=== PATIENT | female | born 1995 | race African-American/Black ===

== ENCOUNTER 2022-09-17 18:47 | Inpatient (IN) | payer OTHER, SELFPAY ==
[2022-09-17 19:58] VITALS: BMI 23.0
[2022-09-17 20:02] VITALS: BP 119/71; PULSE 80
[2022-09-17 20:03] VITALS: RESP 16; TEMP 36.8
--- NOTE | 2022-09-17 21:15 | PM.OBHPLI ---
OB - H&P: HPI Labor/Induction History of Present Illness Time Seen by Provider: 21:15 Date Seen: 09/17/22 Chief Complaint: The patient is a 27 year old 1 para 0 at 39+2 weeks gestation by LMP c/w 7 wk US, who presents for IOL for IUGR. Chief complaint: Maternity : 1 Para: 0 Indications for induction: other (IUGR) Narrative: Olena Coe Nurse is a 27 year old female at 39+ 2 weeks based on LMP consistent with 7 week ultrasound who presents for induction of labor for IUGR. Patient received most of her care through [facility]. Transferred care to [facility] with plan to deliver [facility] at 37 weeks. complicated by intrauterine growth restriction diagnosed at 32 weeks. Estimated weight 5th percentile based on 37 week ultrasound, normal Dopplers, CANDY 12.8 cm, with Maternal- medicine through [facility]. No NIPT. Recommendation to deliver at 39 weeks. also complicated by iron deficiency anemia with hemoglobin of 8.0 and ferritin of 2 on 08/09/2022. Patient received IV Feraheme x2 doses 09/10 in 09/13/2022. She is GBS positive. Today states she is feeling well. Endorses occasional uterine cramping. Normal movement. History of Present Dating criteria: based on LMP care: other (Fair. Transferred to [facility] at 37 weeks.) Ultrasounds: normal 1st trimester US and normal mid trimester US complications comment: IUGR, anemia Labs Blood type: O (+) positive Rubella: immune RPR/VDLR: nonreactive GBS status: positive HBsAG: negative Review of Systems Status of ROS: Reports: 10 or more systems reviewed and unremarkable except as noted in History and below OB - H&P: Exam Physical Exam: Vital signs: Temp Pulse Resp BP 98.2 F 80 16 119/71 09/17/22 20:03 09/17/22 20:02 09/17/22 20:03 09/17/22 20:02 Narrative: General appearance: Well-appearing adult female. Alert, oriented and appropriate. Sitting up in hospital bed. HEENT: EOMI, no conjunctival injection or discharge. MMM. Neck: Supple. CV: RRR, no rubs, murmurs or extra heart sounds. Pulm: CTAB, no wheezes, rales or rhonchi. Abdomen: Gravid. Soft, non-tender. MSK: Moving all extremities. Ext: Warm and well-perfused. No LE edema. Skin: No rashes appreciated over exposed skin. Neuro: Grossly normal strength and sensation. No focal deficits. Psych: Normal affect. Detailed Labor and Delivery Exam: Patient Gravid: Yes Dilation (cm): 0 Effacement (%): 50 Cervix position: posterior Consistency: medium Fetus (Single): Station: -3 Amniotic Membrane Status: intact Heart Rate Baseline: 130 Monitor Accelerations: Present Monitor Decelerations: None Hair Boiler Variability: Moderate (6-25) OB - Problem Based A/P Additional Plan (1) Term : Status: Acute Plan: - Cook catheter placed for cervical ripening. Plan low dose IV pitocin at midnight - GBS positive and will need abx in active labor - Epidural upon request (2) IUGR (intrauterine growth restriction): Problem details: EFW 5th percentile at 37 weeks, normal doplars. Normal 20 week survey. No NIPT. Delivery at 39 weeks per [facility]. Status: Acute Plan: - Plan peds present for delivery (3) Iron deficiency anemia during : Status: Acute Plan: Hgb 8.0 and ferritin 2. Hemoglobin electrophoresis suggested no thalasemia. S/p feraheme at 38 weeks. Plan - Admission hgb pending
[2022-09-18] VITALS (16 sets, daily range): BP systolic 109–140; BP diastolic 60–83; PULSE 69–87; RESP 16; TEMP 36.6–37; O2SAT 100
[2022-09-18 02:32] LABS: Basophils Percent Auto 0.2 % (0.0-3.0); Eosinophils Percent Auto 0.6 % (0.0-7.0); Hematocrit 36.6 % (33.0-51.0); Hemoglobin* 10.4 gm/dL (12.0-16.0); Immature Granulocytes Pct Auto 1.2 %; Lymphocytes Percent Auto 13.9 % (20-44); Mean Corpuscular HGB Conc 28 gm/dL (32-36); Mean Corpuscular Hemoglobin 20 pg (26-34); Mean Corpuscular Volume 70 fL (80-100); Monocytes Percent Auto 6.2 % (0.0-11.0); Neutrophils Percent Auto 77.9 % (42.0-72.0); Platelet Count* 254 K/uL (140-440); RDW Coefficient of Variation % 27.7 % (11.5-15.5); Red Blood Count 5.23 m/uL (4.00-5.20); White Blood Count* 13.34 K/uL (4.50-11.00)
[2022-09-18 02:36] LABS: Slide Review Reflex No
[2022-09-18] MEDS: LACTATED RINGERS 1000 ML 1,000 ML 125 ML IV ×2 (04:40→13:24)
[2022-09-18] MEDS: OXYTOCIN 30 unit/500 ML in NS 30 UNIT/500 ML BAG IVPB (04:45)
[2022-09-18] MEDS: miSOPROStoL 25 MCG/0.25 TABLET PO ×4 (11:24→17:25)
--- NOTE | 2022-09-18 18:26 | P.OBPN_ITS ---
Subjective Time Seen by Provider: 18:26 Date Seen: 09/18/22 Narrative: Patient is nearly 24 hours into induction labor. She had a catheter placed overnight times 12 hours with low-dose Pitocin started at midnight. Cervical check at 10:00 a.m. was 2/60/-3. Pitocin was stopped and patient was transitioned to oral Cytotec. She is now status post 4 doses. She is david every 1-7 minutes. Not really feeling contractions. FHT have been category I. Objective Vital Signs: Last Vital Signs Temp 98.1 F 09/18/22 17:23 Pulse 78 09/18/22 17:23 Resp 16 09/18/22 07:00 BP 109/66 09/18/22 17:23 Pulse Ox 100 09/18/22 08:06 Pelvic Exam Dilation (cm): 1.5 Effacement (%): 60 Station: -3 Assessment Assessment: induction ongoing Station: -3 Heart Rate Baseline: 150 Information And Referral Director Variability: Moderate (6-25) Monitor Accelerations: Present Monitor Decelerations: None Plan Plan: Discussed options for next steps of patient and her spouse including repeating cook catheter overnight, cervical overnight after a 4 hour break, discharge home and return in 24-48 hours to continue induction. Emphasized that safest option for baby is to continue induction given IUGR status. - Patient elects to proceed with repeating cook catheter overnight. Plan to place 2100.
--- NOTE | 2022-09-18 21:30 | PM.OBPNL ---
Subjective Time Seen by Provider: 21:30 Date Seen: 09/18/22 Narrative: Patient noting some more cramping over the past 2 hours. Objective Vital Signs: Last Vital Signs Temp 97.9 F 09/18/22 20:05 Pulse 76 09/18/22 20:05 Resp 16 09/18/22 20:05 BP 129/74 09/18/22 20:05 Pulse Ox 100 09/18/22 08:06 Pelvic Exam Dilation (cm): 2.5 Effacement (%): 75 Station: -3 Contractions Contraction Frequency: Q1-4 Contraction pattern: Regular Contraction intensity: Mild Assessment Station: -3 Heart Rate Baseline: 150 Monitor Accelerations: Present Monitor Decelerations: None Plan Plan: - Cook catheter placed. Cervix stretchy 2.5, soft. - Start IV pitocin 0000 - Epidural upon request - GBS positive. Abx in active labor
[2022-09-18] MEDS: LACTATED RINGERS 1000 ML 1,000 ML IV (22:54)
[2022-09-19] VITALS (14 sets, daily range): BP systolic 100–150; BP diastolic 52–86; PULSE 81–103; RESP 14–18; TEMP 36.3–37; O2SAT 98–99
[2022-09-19] MEDS: AMPICILLIN 2 GM in 0.9 % SODIUM CHLORIDE Mini-bag 100 ML IVPB (03:24)
[2022-09-19] MEDS: LIDOCAINE 1 % PF 30 ML INJECTION ×2 (06:09→06:27)
--- NOTE | 2022-09-19 07:16 | W.PM.OBVAGDE ---
OB Procedure Vag Delivery Mother Details Mother Details: The patient is a 27 year-old, 1, Para 0, admitted on 09/17/22 at Days gestation. : 1 Para: 0 Weeks Gestation: 39.4 Admission Date: 09/17/22 Additional Details Amniotic Membrane Status: AROM Amniotic Membrane Rupture Date: 09/19/22 Amniotic Membrane Rupture Time: 04:59 Amniotic Membrane Fluid Description: Clear and [place] Analgesia/Anesthesia Type: None Waterbirth: No Pitcoin: Yes Intrapartal Events: Labor Induction Induction Method: Intracervical balloon catheter, per misoprostol protocol and per pitocin protocol Delivery augmentation: rupture of membranes and pitocin Labor Onset: 02:03 Complete: 04:36 Pushin:00 Heart: heart tones during second stage were category 2. Early decelerations with contractions. Delivery Details Delivery Date: 09/19/22 Delivery Time: 06:00 Route of delivery: Gender: Female Viability: Alive; Heart Rate Present Position at Delivery: OA Delivery Details: Induction for IUGR. Cervix initially closed. Cook catheter placed 1900 on 09/17/22 with pitocin augmentation. Cervix found to be 2/60/-3. Pitocin stopped and oral cytotec initiated for additional cervical ripening. Received total of 4 doses. Cervix noted to be 1.5/60/03 at 1800 09/18. Elected to replace cook at 2100. IV pitocin initiated at 0127. Cook fell out 0203. Patient began to feel more unconfortable and found to be complete at 0436. AROM for clear fluid at 0459. Pushed with good effort. Delivered over intact perineum via spontaneous vaginal delivery. was placed on maternal abdomen.? Cord was clamped and cut after a 30-60 second delay. Nose and mouth were bulb suctioned.? 1 Minute Interval Total Score: 8 5 Minute Interval Total Score: 9 Additional Details Shoulder Dystocia: No Placenta Delivery Time: 06:04 Placental Delivery Description: Spontaneous Delivery repair: Chromic Procedure Done: Global Blood Loss: 100 Laceration: Perineal - 2nd Degree (And bilateral periurethral first degree, not repaired.) Blood Loss Measurement Type: QBL Bakri Used: No Sponge/Need Count Correct: Yes Cord Vessel Description: 3 Vessels Event Summary Status: Mother and were stable after delivery. Disposition: floor
[2022-09-19] MEDS: DOCUSATE SODIUM 100 MG CAPSULE PO (14:04)
[2022-09-19] MEDS: FERROUS SULFATE 325 MG TABLET PO (14:04)
[2022-09-20 00:19] VITALS: BP 104/62; PULSE 99; RESP 17; TEMP 37; O2SAT 98
[2022-09-20 04:30] VITALS: BP 111/66; PULSE 75; RESP 16; TEMP 36.6; O2SAT 100
[2022-09-20] MEDS: IBUPROFEN 600 MG TABLET PO (04:48)
--- NOTE | 2022-09-20 06:53 | P.OBPN_ITS ---
OB - PN:Subj Subjective Time Seen by Provider: 06:53 Date Seen: 09/20/22 Patient comments OB post-: no complaints, pain well controlled and tolerating diet [place] infant status: and doing well [place] feeding status: exclusively OB - PN: Obj Exam Physical Exam: Vital signs: Temp Pulse Resp BP Pulse Ox O2 Del Method 98 F 75 16 111/66 100 Room Air 09/20/22 04:30 09/20/22 04:30 09/20/22 04:30 09/20/22 04:30 09/20/22 04:30 09/20/22 04:30 Constitutional: Constitutional: no acute distress Routine HEENT Exam: Head: Present atraumatic Routine Respiratory Exam: Respiratory: Present CTA bilaterally Routine Cardiovascular Exam: Cardiovascular: Present RRR; Absent murmur Routine Extremities Exam: Extremities: Present normal inspection Routine Neurological Exam: Neurological: Present alert and oriented X3 Routine Psychiatric Exam: Psychiatric: Present normal affect OB - PN: A/P Vaginal Delivery Assessment and Plan (1) Term : Status: Acute (2) IUGR (intrauterine growth restriction): Problem details: EFW 5th percentile at 37 weeks, normal dopplers. Normal 20 week survey. No NIPT. Delivery at 39 weeks per [facility]. Status: Acute (3) Iron deficiency anemia during : Status: Acute Plan Patient is doing well. Continuing to work on breast feeding. Plan day: 1 Plan: routine care Comments: Plan to discharge to home tomorrow. Staying as baby is SGA and did not receive adequate abx for GBS.
[2022-09-20 07:24] LABS: Hemoglobin* 8.4 gm/dL (12.0-16.0)
[2022-09-20 07:39] VITALS: BP 93/53; PULSE 77; RESP 16; TEMP 37; O2SAT 99
[2022-09-20] MEDS: DOCUSATE SODIUM 100 MG CAPSULE PO (14:52)
[2022-09-20] MEDS: FERROUS SULFATE 325 MG TABLET PO (14:52)
[2022-09-20 16:45] VITALS: BP 94/60; PULSE 77; RESP 16; TEMP 36.7; O2SAT 99
[2022-09-21 00:05] VITALS: BP 100/65; PULSE 77; RESP 16; TEMP 36.6
[2022-09-21 07:50] VITALS: BP 103/61; PULSE 70; RESP 16; TEMP 36.6; O2SAT 100
--- NOTE | 2022-09-21 09:13 | PM.OBDSVD1 ---
DS: Providers Provider Date Seen: 09/21/22 Date of admission: 09/17/22 18:47 Primary care physician: Not a Local Provider Admitting Clinician: Mariana Ramos MD Attending Physician on discharge: Mariana Ramos MD Date of Discharge: 09/21/22 DS: Diagnosis Discharge Diagnosis (1) Term : Status: Acute (2) IUGR (intrauterine growth restriction): Status: Acute Problem details: EFW 5th percentile at 37 weeks, normal dopplers. Normal 20 week survey. No NIPT. Delivery at 39 weeks per M. (3) Iron deficiency anemia during : Status: Acute Exam Const: Vital Signs, click to edit/add: Vital Signs - 24 hr 09/20/22 16:45 09/21/22 00:05 09/21/22 07:50 Temperature 98.0 F 97.9 F 97.8 F Pulse Rate [Pulse Oximeter] 77 77 70 Respiratory Rate 16 16 16 Blood Pressure [Ri ght Arm] 94/60 100/65 103/61 Pulse Oximetry 99 100 Oxygen Delivery Me thod Room Air Room Air Room Air Common normals: no apparent distress and average body habitus GI: Common normals: soft to palpation and non-tender Palpation: soft Other: Uterus firm 2 cm below umbilicus. Extremity: Common normals: no pedal edema OB - DS: Summary Hospital Course Hospital Course: The patient is a 27 year old G 1 P 1 at 39+3 weeks gestation that was admitted to the Center on 09/17/22 for IOL for IUGR. She had an uncomplicated vaginal delivery. She delivered a viable female infant. She is breast feeding. the patient has done well. Peripartum Data Infant delivery method: Vaginal complications: none Gender: Female Discharge Plan: Home Status at Discharge Functional status at discharge: independent ambulation Overall status at discharge: patient is progressing back to baseline Time Spent with Patient Time attestation: Total time spent providing and/or coordinating discharge services: Time spent: Less than 30 minutes Discharge Plan Discharge Disposition: Home, Self-Care Date of Admission: 09/17/22 18:47 Attending Provider on Discharge: Jessie Byrd Primary Care Provider: Provider,Not a Local Condition: Improved Anticipated Discharge Date/Time: 09/21/22 09:16 Discharge Medications: Continued 400 mcg tablet,chewable 2 tab PO DAILY Discharge Orders: Discharge Order (Routine); Ordered 09/21/22 Ordered By: Jessie Byrd Patient Education: OB Vaginal/Breast Feeding Follow Up Appointments: Provider,Not a Local [Primary Care Provider] - Forms: Ecelles Carson Info Instructions
[2022-09-21 17:00] VITALS: BP 98/58; PULSE 99; RESP 16; TEMP 36.6
== END 2022-09-21 21:40 | disposition home or self-care (01) | DRG 807 ==
PROVIDERS: Admitting Provider Family Medicine; Visit Provider Family Medicine
DX: O36.5930 Maternal care for other known or suspected poor fetal growth, third trimester, not applicable or unspecified (principal); Z37.0 Single live birth; O70.1 Second degree perineal laceration during delivery; O99.824 Streptococcus B carrier state complicating childbirth; O99.02 Anemia complicating childbirth; D50.9 Iron deficiency anemia, unspecified; Z3A.39 39 weeks gestation of pregnancy
CPT/HCPCS: 36415; 59200; 85018; 85025; 86850; 86900; 86901; 88307; A9270; C1726; J0290; J2001; J7120